=== PATIENT | female | born 1990 | race African-American/Black ===

== ENCOUNTER 2023-08-06 17:44 | Emergency (ER) | payer MEDICAID ==
[~2023-08-06] VITALS: Ht 160 cm; Wt 63.0 kg
[2023-08-06 17:59] VITALS: BP 101/54; PULSE 70; RESP 18; TEMP 98.6; O2SAT 100
== END 2023-08-06 20:46 | disposition home or self-care (01) ==
LOC: ER 17:44
DX: O26.892 Other specified pregnancy related conditions, second trimester (principal); Z3A.18 18 weeks gestation of pregnancy
CPT/HCPCS: 36415; 81025; 86850; 86900; 99284